=== PATIENT | male | born 1980 | race Caucasian/White ===

== ENCOUNTER 2020-11-03 03:42 | Outpatient (CLI) | payer BC, SELFPAY ==
[2020-11-04 14:41] LABS: COVID-19 RT-PCR UVMMC Result Negative (Negative)
== END 2020-11-03 03:43 | disposition home or self-care (01) ==
LOC: LBO 03:42
PROVIDERS: PCP Emergency Medicine; Visit Provider Emergency Medicine
DX: Z20.822 Contact with and (suspected) exposure to COVID-19 (principal)
CPT/HCPCS: U0003

== ENCOUNTER 2022-04-27 09:05 | Day surgery (SDC) | payer BC, SELFPAY ==
--- NOTE | 2022-04-26 16:14 | COLE_ITS ---
Colonoscopy Report Date of procedure: 04/27/22 Pre-op diagnosis general: Family history of colorectal cancer in first-degree me mber less than 60 yea Post-op diagnosis procedure note: other (diverticula-minor ) Surgeon: Maura Medrano Anesthesia Type: General:No Airway Estimated blood loss (mL): 0 Pathology: none sent Complications: None Disposition: same day Prep: Miralax/Dulcolax Retraction Time: 8 mins Procedure Description: After informed consent was obtained the patient was taken to the procedure room and placed in a left decubitous position. Monitors were applied and a time out was done. The patients name, date of , procedure, allergies to medications and metal in their body was reviewed. The patient was then sedated. Once sedated and comfortable a rectal exam was done. External exam was normal. Internal exam revealed a normal sphincter tone and no palpable masses. The prostate nl. The scope was then introduced and retrofelexed. No internal hemorrhoids were identified. The scope was then advanced to the cecum without difficulty. The TI and appendiceal orifice were identified. The prep was BB PS 3 in all segments for a total of 9. The scope was then slowly retracted over 9 minutes back into the rectum. There are no polyps or AVMs identified today. The mucosa is pink and healthy with a normal vascular pattern. He has a few small scattered diverticula confined to the sigmoid colon with no signs of active bleeding or infection. The scope was removed and the patient was woken up and taken back to Same day surgery in stable condition. The patient tolerated the procedure well and there were no immediate complications. Follow up: The patient should follow up in 5 years unless they develop changes in bowel habits or other new gastrointestinal complaints.
--- NOTE | 2022-04-26 16:15 | PDOC.DSDIS_ITS ---
Discharge Plan Disposition Patient Disposition: HOME Condition: Good Discharge Details Reason For Visit: Colonoscopy Attending Provider: Maura Medrano Primary Care Provider: Dennys Bartlett Home Meds and New Rx's Prescriptions: Discontinued polyethylene glycol 3350 17 gram/dose powder 238 g PO ONCE Qty: 238 0RF Rx Instructions: take per colonoscopy instructions bisacodyl [Dulcolax (bisacodyl)] 5 mg tablet,delayed release (DR/EC) 5 mg PO ONCE Qty: 4 0RF Rx Instructions: take per colonoscopy instructions Discharge Instructions Additional Instructions: [facility] Colonoscopy Post- Op Instructions Instructions for Everyone who is given Anesthesia: For your safety, please do the following for the next twenty-four (24) hours: *Do Not operate a motor vehicle (car, truck, motorcycle, etc.) *Do Not drink alcoholic beverages or use any recreational drugs for the first 24 hours or while taking pain medications. The medications in your body may have a reaction that can be dangerous. *Do Not make any important decisions or sign any important papers. Findings: Diverticula Follow up: Make sure you are moving your bowels on a regular basis and not straining to go to the bathroom if you find you have constipation/irregularity, I would recommend starting on a fiber product.. Repeat colonoscopy in 5 years time - If you should ever notice any pain or difficulty having a bowel movement, blood in the stool, unexplained weight loss, or change in your bowel habits, please contact your health provider. 1. No lifting over 20 pounds or strenuous activity for the first 24 hours after your procedure. After 24 hours there are no restrictions on your activity but you may feel fatigued for a few days. 2. After you arrive home you may have a light meal and return to your normal diet as you can tolerate it without feeling sick to your stomach. 3. You may have a bloated, gaseous feeling in your belly (abdomen) after a colonoscopy. Passing gas and belching will help. Walking or lying down on your left side with your knees flexed may relieve the discomfort. Call the office at [phone] (Office) or [phone] (Hospital) right away if you notice any of the following: a.Vomiting of blood or ?coffee ground stools?. b.Rectal bleeding 1Tbsp, blood clots or continuous bleeding. c.Severe belly (abdominal) pain. d.A hard distended belly (abdomen) and an inability to pass gas. 4. Please don?t expect to have a normal BM (bowel movement) for 2-3 days after your procedure. 5. If there are questions regarding the findings of your procedure, please contact your doctor 6. If you are unable to contact your doctor with a problem, contact the hospital at [phone]. 7. Continue all your regular medications unless directed otherwise. I understand the above instructions and have no questions. Signature of Patient or Adult Escort Name of Responsible Adult Escort Signature of Nurse Date/Time Activity:: See above Discharge Orders Discharge Orders: Discharge Order (Routine); Ordered 04/26/22 Ordered By: Maura Medrano
[2022-04-27 09:22] VITALS: BP 132/72; PULSE 58; RESP 16; TEMP 36.4; O2SAT 98
[2022-04-27] MEDS: Lactated Ringers 1,000 ML 80 ML IV (09:39)
--- NOTE | 2022-04-27 10:10 | W.ANESPRE ---
General Info Date of Service Date Performed: 04/27/22 Height: 6 ft Weight: 88.6 kg Body Mass Index (BMI): 26.4 Surgical Procedure: Operation Date: 04/27/22 09:50 Proposed Procedure Side Surgeon p Colonoscopy Maura Medrano DO Pre-Op Diagnosis Post-Op Diagnosis Colonoscopy Meds Allergies and Home Medications Allergies Allergy/AdvReac Type Severity Reaction Status Date / Time No Known Allergies Allergy Verified 04/27/22 09:27 Current Visit Medications: Current Medications Generic Name Dose Route Start Last Admin Trade Name Freq PRN Reason Stop Dose Admin Hyoscyamine Sulfate 0.125 mg 04/27/22 08:13 Hyoscyamine 0.125 Mg Sl/Oral/Chew SL DIRECTED PRN Ringer's Solution 1,000 mls @ 80 mls/hr 04/27/22 06:00 04/27/22 09:39 IV 05/26/22 23:59 80 mls/hr INFUSION MIC Administration IV Miscellaneous Supplies 1 each 04/27/22 06:00 Iv Access IV 05/26/22 23:59 DIRECTED MIC Ondansetron HCl 4 mg 04/27/22 08:13 Ondansetron 4 Mg/2 Ml Vial IVP Q4H PRN PRN Nausea / Vomiting Sodium Chloride 0 ml 04/27/22 06:00 Normal Saline Flush 10 Ml Syr IV 05/26/22 23:59 PRN PRN Sodium Chloride 0 ml 04/27/22 06:00 Normal Saline 10 Ml Vial IJ 05/26/22 23:59 DIRECTED PRN Sterile Water 0 ml 04/27/22 06:00 Water,Injection,Sterile 10 Ml Vial IJ 05/26/22 23:59 DIRECTED PRN PFSH Active Problems Active Problems: Problem Status Onset Code Family history of colon cancer in father Z80.0 Surgical History Surgical History (Updated 04/27/22 @ 09:27 by Heidi Reyes RN) Hx of removal of cyst L foot Hx of wisdom tooth extraction Tobacco Smoking/Tobacco Use Status: Never Passive smoking exposure: Yes Second hand exposure: Yes Alcohol Alcohol Intake: current Alcohol intake frequency: a few times a month Alcohol type: beer Substance Use Substance use: Rarely Substance use type: marijuana Vital Signs and Lab Results Vital Signs Most Recent Vital Signs in EMR: Most Recent Vital Signs Temp Pulse Resp BP Pulse Ox 36.4 C L 58 L 16 132/72 98 04/27/22 09:22 04/27/22 09:22 04/27/22 09:22 04/27/22 09:22 04/27/22 09:22 Lab Results Blood Type / Crossmatch: No Data to Display Complete Blood Count: No Data to Display Complete Metabolic Panel: No Data to Display Liver Function Panel: No Data to Display Coagulation Panel: No Data to Display Cardiac Panel: No Data to Display Arterial Blood Gas: No Data to Display Venous Blood Gas: No Data to Display Pancreas Panel: No Data to Display Thyroid Panel: No Data to Display Infectious Disease: No Data to Display Blood Cultures: No Data to Display Toxicology Panel: No Data to Display Anesthesia Assessment and Plan Anesthesia History Personal History: No History of Anesthesia Complications Family History: No Family History of Anesthesia Complications Exercise Tolerance Exercise Tolerance: Metabolic Equivalents>4 Pertinent Negatives Pertinent Negatives: No Symptoms of GERD, No Major Cardiovascular Symptoms or Complaints and No Major Pulmonary Symptoms or Complaints Cardiac & Pulmonary Exam Cardiac Exam: Normal S1/S2 Heart Sounds Pulmonary Exam: Clear Bilateral Breath Sounds Implantable Cardiac Device Does patient have a Pacemaker or an ICD?: No Airway Exam Known Difficult Airway: No Mallampati Class: 2 Mouth Opening: Narrow (< 3cm) Thyromental Distance: Greater than 3 cm Neck Range of Motion: Full ROM Neck Circumference: Normal Teeth Condition: Normal Dentition ASA Classification ASA Score: ASA 2 Emergency Case?: No NPO Status NPO Status: NPO Clears >2 hours, Solids >8 hours Anesthesia Plan Resuscitation Status: Full Code Anesthesia Technique: General Anesthesia Airway Planned: Natural Airway Monitors Used: Standard Monitors
[2022-04-27 10:13] VITALS: BMI 26.4
[2022-04-27 10:56] VITALS: BP 112/63; PULSE 59; RESP 16; TEMP 36.2; O2SAT 97
[2022-04-27 11:24] VITALS: BP 116/86; PULSE 53; RESP 17; TEMP 36.5; O2SAT 99
--- NOTE | 2022-04-27 13:32 | W.ANESPOSTOP ---
Postoperative Evaluation Date, Time and Location Date Performed: 04/27/22 Time Performed: 11:30 Patient Location: Day Surgery Unit Vital Signs Most Recent Imported Vital Signs: Most Recent Vital Signs Temp Pulse Resp BP Pulse Ox 36.5 C 53 L 17 116/86 99 04/27/22 11:24 04/27/22 11:24 04/27/22 11:24 04/27/22 11:24 04/27/22 11:24 Pain Score Most Recent Pain Score: Most Recent Pain Score Pain Level 0 04/27/22 11:24 Assessment Mental Status: Awake (Alert & Oriented to Patient Baseline) Airway and Respiratory Function: Patent airway with normal (patient baseline) respiratory exam Cardiovascular Function: Hemodynamically Stable Hydration Status: Adequately Hydrated Nausea & Vomiting: No Nausea or Vomiting Pain: Pt. Denies Any Pain Peripheral Nerve Block: Patient did not receive a nerve block
== END 2022-04-27 11:57 | disposition home or self-care (01) ==
PROVIDERS: PCP Nurse Practitioner Family; Visit Provider Surgery
PROC: 0DJD8ZZ Inspection of Lower Intestinal Tract, Via Natural or Artificial Opening Endoscopic (ICD-10-PCS; CPT 45378; principal; 2022-04-27 09:45)
DX: Z12.11 Encounter for screening for malignant neoplasm of colon (principal); Z80.0 Family history of malignant neoplasm of digestive organs; K57.30 Diverticulosis of large intestine without perforation or abscess without bleeding
CPT/HCPCS: 45378; J2001

== ENCOUNTER 2022-07-11 03:40 | Outpatient (CLI) | payer BC, SELFPAY ==
[2022-07-11 17:16] LABS: Anion Gap 8.9 mmol/L (3-11); BUN 10 mg/dL (7-18); CO2 28.1 mmol/L (21.0-32.0); CREATININE 0.8 mg/dL (0.70-1.30); Calcium 9.1 mg/dL (8.5-10.1); Calculated LDL 102 mg/dL (<100); Chloride 101 mmol/L (98-107); Cholesterol 167 mg/dL (<200); Estimated GFR 114.74 (mL/min/1.73m2); Glucose 76 mg/dL (74-106); HDL Cholesterol 57 mg/dL (40-60); Sodium 138 mmol/L (136-145); Triglyceride 43 mg/dL (<150)
[2022-07-13 10:27] LABS: HIV-1/2 Ag & Ab Screen Negative (Negative)
[2022-07-13 10:28] LABS: Hepatitis C Ab w Rflx HCV PCR Negative (Negative)
== END 2022-07-11 03:41 | disposition home or self-care (01) ==
LOC: LBO 03:40
PROVIDERS: PCP Nurse Practitioner Family; Visit Provider Family Medicine
DX: Z00.00 Encounter for general adult medical examination without abnormal findings (principal); Z13.6 Encounter for screening for cardiovascular disorders; Z11.59 Encounter for screening for other viral diseases; Z11.4 Encounter for screening for human immunodeficiency virus [HIV]; Z13.228 Encounter for screening for other metabolic disorders
CPT/HCPCS: 36415; 80048; 80061; 86803; 87389

== ENCOUNTER 2025-03-02 09:23 | Outpatient (CLI) | payer BC, SELFPAY ==
[2025-03-02 12:48] LABS: Hemoglobin A1C 5.1 % (<5.7)
[2025-03-02 12:51] LABS: Calculated LDL 91 mg/dL (<100); Cholesterol 152 mg/dL (<200); HDL Cholesterol 46 mg/dL (>or=40); Triglyceride 77 mg/dL (<150)
== END 2025-03-02 09:24 | disposition home or self-care (01) ==
LOC: LOS 09:23
PROVIDERS: PCP Nurse Practitioner Family; Visit Provider Nurse Practitioner Family
DX: Z13.220 Encounter for screening for lipoid disorders (principal); Z13.1 Encounter for screening for diabetes mellitus
CPT/HCPCS: 36415; 80061; 83036